=== PATIENT | female | born 1940 | race Caucasian/White ===

== ENCOUNTER 2017-06-11 19:00 | Emergency (ER) | payer OTHER ==
[~2017-06-11] VITALS: Ht 167.6 cm; Wt 88.0 kg
[2017-06-11 19:36] LABS: HEMOGLOBIN 15.6 G/DL (11.9-15.5); MCH 32.4 PG (29.0-34.0); MCHC 35.5 G/DL (30.0-36.0); MCV 91.3 FL (83-99); PLATELET COUNT 161 K/uL (156-360); RBC DIS.WIDTH-CV 12.5 % (11.8-14.6); RBC DIS.WIDTH-SD 41.2 % (39-53); RED BLOOD COUNT 4.82 M/uL (3.80-5.20); WHITE BLOOD COUNT 8.6 K/uL (4.1-10.2)
[2017-06-11 19:52] LABS: CHLORIDE 108 mEq/L (99-109); POTASSIUM 3.9 mEq/L (3.7-5.4); SODIUM 141 mEq/L (136-147)
[2017-06-11 19:54] LABS: GLUCOSE 105 mg/dL (70-99)
[2017-06-11 19:58] LABS: CREATININE 0.7 mg/dL (0.6-1.3); GFR ESTIMATE (CALCULATED) > 59 mL/min/
[2017-06-11 19:59] LABS: UREA NITROGEN (BUN) 16 mg/dL (9-23)
[2017-06-11] MEDS ORDERED: FLAGYL500 MG PO (21:24)
[2017-06-11 22:06] VITALS: BP 134/85
[2017-06-12] MEDS ORDERED: LEVOTHYROXINE100 MCG PO (15:17)
[2017-06-12] MEDS ORDERED: ATORVASTATIN CA40 MG PO (15:18)
[2017-06-12] MEDS ORDERED: FISH OIL 1,2001 EAC4 PO (15:18)
[2017-06-12] MEDS ORDERED: MULTIVITAMIN1 EAC2 PO (15:18)
[2017-06-12] MEDS ORDERED: METAMUCIL0.4 GM PO (15:19)
[2017-06-12] MEDS ORDERED: CALCIUM500 M4 PO (15:19)
== END 2017-06-11 22:07 | disposition home or self-care (01) ==
LOC: EME 19:00
PROC: 3E0234Z Introduction of Serum, Toxoid and Vaccine into Muscle, Percutaneous Approach (ICD-10-PCS; principal; 2017-06-11)
DX: S61.451A Open bite of right hand, initial encounter (principal); L08.9 Local infection of the skin and subcutaneous tissue, unspecified; W55.01XA Bitten by cat, initial encounter; Z23 Encounter for immunization; E78.5 Hyperlipidemia, unspecified
CPT/HCPCS: 73130; 80048; 85027; 99281; 99284; J0696